=== PATIENT | female | born 1945 | race Caucasian/White ===

== ENCOUNTER 2016-07-20 07:35 | Emergency (ER) | payer MEDICARE ==
[~2016-07-20] VITALS: Ht 160 cm; Wt 83.0 kg
[~2016-07-20 07:35] MED LIST: AMIT75TA2 PO; GLIP10TA10 PO; HYDR25TA PO; METF500T4 PO; PARO-41 PO; [UNRECOGNIZED DRUG - OTHER]
[2016-07-20] MEDS ORDERED: MORPHINE SULFATE 10 MG/ML CPJ IM ONE (09:00)
[2016-07-20] MEDS ORDERED: TETANUS, DIPHTHERIA, PERTUSSIS VAC/PF 0.5ML (>7YR OLD) IM ONE (09:30)
[2016-07-20] MEDS ORDERED: BACITRACIN ZINC OINT UDPKT TOP ONE (09:30)
[2016-07-20 11:27] VITALS: BP 150/63
== END 2016-07-20 11:51 | disposition home or self-care (01) ==
LOC: ER 11:30
DX: S62.112A Displaced fracture of triquetrum [cuneiform] bone, left wrist, initial encounter for closed fracture (principal); M79.89 Other specified soft tissue disorders; M79.642 Pain in left hand; E78.00 Pure hypercholesterolemia, unspecified; E11.9 Type 2 diabetes mellitus without complications; Z23 Encounter for immunization; W18.30XA Fall on same level, unspecified, initial encounter; S60.419A Abrasion of unspecified finger, initial encounter; Y93.9 Activity, unspecified; Y92.89 Other specified places as the place of occurrence of the external cause; Y99.8 Other external cause status
CPT/HCPCS: 29125; 73110; 73130; 90471; 90715; 96374; 99284; J2270

== ENCOUNTER 2016-11-23 13:15 | Inpatient (IN) | payer MEDICARE ==
[~2016-11-23] VITALS: Ht 157.5 cm; Wt 88.9 kg
[2016-11-23] MEDS ORDERED: ACETAMINOPHEN 650MG SUPP PR ONE (13:45)
[2016-11-23] MEDS ORDERED: ACETAMINOPHEN 325MG TABLET PO ONE (13:45)
[2016-11-23] MEDS ORDERED: ACETAMINOPHEN 650MG SUPP ONE (13:45)
[2016-11-23] MEDS ORDERED: ACETAMINOPHEN 325MG TABLET ONE (13:46)
[2016-11-23 14:09] LABS: BASOPHILS % 0.9 % (0.0-2.0); HEMATOCRIT. 49.4 % (36.0-48.0); HEMOGLOBIN. 17.1 g/dL (12.0-16.0); MEAN CORPUSCULAR HEMOGLOBIN 29.8 pg (28.0-32.0); MEAN CORPUSCULAR VOLUME 85.9 fL (81.0-99.0); MEAN PLATELET VOLUME 10.2 fl (7.4-10.4); MONOCYTES % 2.5 % (2.0-8.0); NEUTROPHILS % 72.6 % (40.0-76.0); PLATELET 238 x1000/uL (130-400); RED BLOOD CELL COUNT 5.75 mill/uL (4.2-5.4); RED CELL DISTRIBUTION WIDTH 13.5 % (11.6-14.6)
[2016-11-23 14:15] LABS: CHLORIDE 93 mEq/L (98-107)
[2016-11-23] MEDS ORDERED: LABETALOL HCL 200 MG in DEXT 5% WATER 60 ML IV PRN (14:15)
[2016-11-23 14:20] LABS: CLARITY URINE CLEAR (CLEAR); COLOR URINE YELLOW (YELLOW); GLUCOSE URINE 3+ (NEGATIVE); KETONES URINE 1+ (NEGATIVE); LEUKOCYTE ESTERASE URINE NEGATIVE (NEGATIVE); NITRITE URINE NEGATIVE (NEGATIVE); OCCULT BLOOD URINE 2+ (NEGATIVE); PH URINE 5.5 (4.5-8.0); PROTEIN URINE 4+ (NEGATIVE); SPECIFIC GRAVITY URINE 1.026 (1.005-1.030); UROBILINOGEN URINE 0.2 E.U./dL (0.2-1.0)
[2016-11-23 14:23] LABS: BETA HYDROXYBUTYRATE 1.9 mMol/L (0.0-0.3); CARBON DIOXIDE 26 mEq/L (21-32)
[2016-11-23] MEDS ORDERED: LABETALOL HCL 200 MG in DEXT 5% WATER 60 ML IV ONE (14:30)
[2016-11-23] MEDS ORDERED: VANCOMYCIN 500 MG in DEXT 5% WATER 100 ML IV SCH (14:30)
[2016-11-23] MEDS ORDERED: CEFTRIAXONE 1 G PREMIX 50 ML IV ONE (14:30)
[2016-11-23 14:46] LABS: BG BASE EXCESS -2.2 mmol/L (-2.0-2.0); BG CARBOXYHEMOGLOBIN 0.7 % (0.5-1.5); BG DEOXYHEMOGLOBIN 1.2 % (0.0-5.0); BG FRACTION INSPIRED OXYGEN 100; BG HCO3 ACT 22.5 mmol/L (22.0-26.0); BG METHEMOGLOBIN 0.4 % (0.0-1.5); BG OXYGEN SATURATION 98.8 % (92.0-98.5); BG OXYHEMOGLOBIN 97.7 % (94.0-97.0); BG PCO2 38.5 mmHg (35.0-45.0); BG PH 7.384 (7.350-7.450); BG PO2 160.5 mmHg (75.0-100.0); BG SAMPLE SITE RIGHT BRACHIAL; BG TOTAL HEMOGLOBIN 16.8 g/dL (12.0-18.0); BG VENT MODE MASK - NRB
[2016-11-23] MEDS ORDERED: INSULIN REGULAR (HUMULIN R) UD 100 UNITS/ML SYR IV ONE (15:15)
[2016-11-23] MEDS ORDERED: VANCOMYCIN 1 G PREMIX 200 ML IV ONE (15:15)
[2016-11-23] MEDS ORDERED: INSULIN REGULAR (HUMULIN R) 300UNITS/3ML IV SCH (15:30)
[2016-11-23] MEDS ORDERED: SODIUM CHLORIDE 0.9% 1,800 ML IV ONE (15:30)
[2016-11-23 16:00] LABS: GLUCOSE CSF 190 mg/dL (41-75)
[2016-11-23 17:18] VITALS: BP 102/50
[2016-11-23 17:25] VITALS: BP 102/50
[2016-11-23] MEDS ORDERED: DEXTROSE 50% WATER 50ML SYRINGE IV PRN (19:15)
[2016-11-23 20:00] VITALS: BP 113/49
[2016-11-23] MEDS: INSULIN LISPRO 100 UNITS/ML SUBCUT SCH ×2 (21:10→22:15)
[2016-11-23] MEDS: SODIUM CHLORIDE 0.45% 1,000 ML IV SCH (21:11)
[2016-11-23] MEDS ORDERED: VANCOMYCIN 500 MG PREMIX 100 ML IV SCH (22:00)
[2016-11-23] MEDS: BLOOD SUGAR DIAGNOSTIC STRIP TEST SCH (22:18)
[2016-11-23] MEDS ORDERED: ENOXAPARIN 30MG/0.3ML SYR SUBCUT SCH (23:00)
[2016-11-24] VITALS: BP 113/63
[2016-11-24 04:00] VITALS: BP 127/74
[2016-11-24] MEDS ORDERED: ACETAMINOPHEN 325MG TABLET PO SCH (05:15)
[2016-11-24 06:24] LABS: BASOPHILS % 0.4 % (0.0-2.0); EOSINOPHILS % 0.2 % (0.0-5.0); LYMPHOCYTES % 25.5 % (20.0-50.0); MEAN CORPUSCULAR HEMOGLOBIN 29.2 pg (28.0-32.0); MEAN CORPUSCULAR VOLUME 85.5 fL (81.0-99.0); MONOCYTES % 7.5 % (2.0-8.0); NEUTROPHILS % 66.4 % (40.0-76.0); PLATELET 175 x1000/uL (130-400); RED BLOOD CELL COUNT 4.79 mill/uL (4.2-5.4); RED CELL DISTRIBUTION WIDTH 13.3 % (11.6-14.6)
[2016-11-24 06:53] LABS: CARBON DIOXIDE 26 mEq/L (21-32); CHLORIDE 101 mEq/L (98-107)
[2016-11-24 07:03] LABS: T4 FREE 1.22 ng/dL (0.76-1.46)
[2016-11-24] MEDS: BLOOD SUGAR DIAGNOSTIC STRIP TEST SCH ×4 (07:40→22:45)
[2016-11-24 08:00] VITALS: BP 161/80
[2016-11-24] MEDS: GLIPIZIDE 10MG TABLET PO SCH (08:04)
[2016-11-24] MEDS: PANTOPRAZOLE 40MG DR TABLET PO SCH (08:04)
[2016-11-24] MEDS: INSULIN LISPRO 100 UNITS/ML SUBCUT SCH ×4 (08:10→22:38)
[2016-11-24] MEDS: ENOXAPARIN 30MG/0.3ML SYR SUBCUT SCH ×2 (08:16→22:04)
[2016-11-24] MEDS: SODIUM CHLORIDE 0.45% 1,000 ML IV SCH (10:32)
[2016-11-24] MEDS: ACETAMINOPHEN 325MG TABLET PO PRN (10:33)
[2016-11-24 11:56] VITALS: BP 157/86
[2016-11-24] MEDS ORDERED: POTASSIUM CHLORIDE 20MEQ TABLET SR PO NR (14:45)
[2016-11-24] MEDS ORDERED: CEFTRIAXONE 1 G PREMIX 50 ML IV SCH (15:00)
[2016-11-24 16:00] VITALS: BP 169/81
[2016-11-24] MEDS ORDERED: VANCOMYCIN 750 MG PREMIX 150 ML IV SCH (16:00)
[2016-11-24] MEDS ORDERED: POTASSIUM CHLORIDE INJ 30 MEQ in SODIUM CHLORIDE 0.45% 1,000 ML IV NR (16:00)
[2016-11-24] MEDS: LEVOFLOXACIN 500MG PREMIX 100 ML IV SCH (17:19)
[2016-11-24] MEDS: AMITRIPTYLINE 50MG TABLET PO SCH (17:30)
[2016-11-24] MEDS: VANCOMYCIN 1 G PREMIX 200 ML IV SCH (18:37)
[2016-11-24 20:00] VITALS: BP 119/92
[2016-11-25] VITALS: BP 181/98
[2016-11-25 04:00] VITALS: BP 134/68
[2016-11-25] MEDS: SODIUM CHLORIDE 0.45% 1,000 ML IV SCH ×3 (04:15→22:40)
[2016-11-25 05:40] LABS: BASOPHILS % 0.6 % (0.0-2.0); EOSINOPHILS % 0.6 % (0.0-5.0); HEMATOCRIT. 42.5 % (36.0-48.0); HEMOGLOBIN. 14.5 g/dL (12.0-16.0); LYMPHOCYTES % 41.2 % (20.0-50.0); MEAN CORPUSCULAR HEMOGLOBIN 29.3 pg (28.0-32.0); MEAN CORPUSCULAR VOLUME 86.2 fL (81.0-99.0); MONOCYTES % 7.5 % (2.0-8.0); NEUTROPHILS % 50.1 % (40.0-76.0); PLATELET 159 x1000/uL (130-400); RED BLOOD CELL COUNT 4.93 mill/uL (4.2-5.4); RED CELL DISTRIBUTION WIDTH 13.3 % (11.6-14.6)
[2016-11-25 07:25] LABS: CARBON DIOXIDE 27 mEq/L (21-32)
[2016-11-25 07:32] LABS: CHLORIDE 101 mEq/L (98-107)
[2016-11-25] MEDS: BLOOD SUGAR DIAGNOSTIC STRIP TEST SCH ×4 (07:52→20:53)
[2016-11-25 07:55] VITALS: BP 156/96
[2016-11-25] MEDS: PANTOPRAZOLE 40MG DR TABLET PO SCH (09:04)
[2016-11-25] MEDS: GLIPIZIDE 10MG TABLET PO SCH (09:04)
[2016-11-25] MEDS: AMITRIPTYLINE 50MG TABLET PO SCH (09:04)
[2016-11-25] MEDS: ENOXAPARIN 30MG/0.3ML SYR SUBCUT SCH ×2 (09:05→20:52)
[2016-11-25] MEDS: INSULIN LISPRO 100 UNITS/ML SUBCUT SCH ×4 (09:10→20:58)
[2016-11-25 12:00] VITALS: BP 166/85
[2016-11-25] MEDS: VANCOMYCIN 1 G PREMIX 200 ML IV SCH (12:12)
[2016-11-25 16:00] VITALS: BP 165/93
[2016-11-25] MEDS: LEVOFLOXACIN 500MG PREMIX 100 ML IV SCH (18:05)
[2016-11-25 20:00] VITALS: BP 158/79
[2016-11-26] VITALS: BP 137/84
[2016-11-26 04:00] VITALS: BP 155/74
[2016-11-26] MEDS: VANCOMYCIN 1 G PREMIX 200 ML IV SCH (05:33)
[2016-11-26] MEDS: ACETAMINOPHEN 325MG TABLET PO PRN (05:33)
[2016-11-26] MEDS: SODIUM CHLORIDE 0.45% 1,000 ML IV SCH (05:50)
[2016-11-26] MEDS: BLOOD SUGAR DIAGNOSTIC STRIP TEST SCH ×2 (05:50→13:00)
[2016-11-26] MEDS ORDERED: FAMOTIDINE 20MG TABLET PO SCH (07:40)
[2016-11-26 08:00] VITALS: BP 159/89
[2016-11-26] MEDS: INSULIN LISPRO 100 UNITS/ML SUBCUT SCH ×2 (08:39→13:02)
[2016-11-26] MEDS: GLIPIZIDE 10MG TABLET PO SCH (08:39)
[2016-11-26] MEDS: ENOXAPARIN 30MG/0.3ML SYR SUBCUT SCH (08:39)
[2016-11-26] MEDS: AMITRIPTYLINE 50MG TABLET PO SCH (08:39)
[2016-11-26 12:00] VITALS: BP 159/90
[2016-11-26 14:51] VITALS: BP_SYST 148; BP_SYST 159; BP_DIAS 84
[2016-11-26 16:00] VITALS: BP 148/84
[2016-11-26] MEDS ORDERED: LEVOFLOXACIN 500MG TABLET PO SCH (16:00)
== END 2016-11-26 16:50 | disposition home or self-care (01) | DRG 871 ==
LOC: ER 14:09 → 7WST 15:41 → ENRESERV 15:50 → EDBEDREQ 15:57
PROVIDERS: ADMIT Internal Medicine; ATTEND Internal Medicine
PROC: 009U3ZX Drainage of Spinal Canal, Percutaneous Approach, Diagnostic (ICD-10-PCS; principal; 2016-11-23)
DX: A41.9 Sepsis, unspecified organism (principal); G93.40 Encephalopathy, unspecified; N39.0 Urinary tract infection, site not specified; E11.65 Type 2 diabetes mellitus with hyperglycemia; I16.0 Hypertensive urgency; E86.0 Dehydration; M19.90 Unspecified osteoarthritis, unspecified site; E78.00 Pure hypercholesterolemia, unspecified; F32.9 Major depressive disorder, single episode, unspecified; I10 Essential (primary) hypertension; Z79.84 Long term (current) use of oral hypoglycemic drugs; Z79.899 Other long term (current) drug therapy
CPT/HCPCS: 36415; 36600; 51702; 62270; 70450; 71010; 80053; 81001; 82010; 82375; 82805; 82945; 82962; 83036; 83605; 83735; 84157; 84439; 84443; 85025; 87040; 87070; 87086; 87205; 89050; 96365; 96367; 99291; J0696; J1650; J1815; J1956; J3370; J3480; J3490; J7030; J7060; A4315